=== PATIENT | male | born 2005 | race Caucasian/White ===

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

== ENCOUNTER 2024-05-03 09:22 | Emergency (ER) | payer OTHER, SELFPAY ==
[2024-05-03 09:22] VITALS: BP 146/92; PULSE 68; RESP 16; TEMP 36.5; O2SAT 99
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
== END 2024-05-03 10:06 | disposition home or self-care (01) ==
LOC: CHSED 09:57
PROVIDERS: Emergency Provider Emergency Medicine; PCP Family Medicine
DX: M79.662 Pain in left lower leg (principal)
CPT/HCPCS: 99282